=== PATIENT | female | born 1980 | race Caucasian/White ===

== ENCOUNTER 2022-03-02 07:03 | Inpatient (IN) | payer BC ==
[~2022-03-02] VITALS: Ht 175.3 cm; Wt 132.4 kg
[~2022-03-02 07:03] MED LIST: COLACE 100MG C100 MG PO; FERROUS SULFAT325 MG PO; IBUPROFEN600 MG PO; NORCO 10-325 T1 EACH PO; PRENATABS FA T1 EACH PO; VITAMIN D250 MCG PO
[2022-03-02 08:08] LABS: HEMOGLOBIN 10.8 gm/dl (12.3-15.3)
[2022-03-02 08:40] LABS: BUN/CREATININE RATIO 14 (0-10)
[2022-03-02] MEDS ORDERED: IBUPROFEN600 MG PO (09:04)
[2022-03-02] MEDS ORDERED: DOCUSATE SODIU100 MG PO (09:04)
[2022-03-02] MEDS ORDERED: HYDROCODON-ACE1 EAC4 PO (09:04)
[2022-03-02] MEDS ORDERED: GLUCOPHAGE 500500 MG PO (09:08)
[2022-03-02] MEDS ORDERED: CYMBALTA20 MG PO (09:09)
[2022-03-02] MEDS ORDERED: ABILIFY10 MG PO (09:09)
[2022-03-03 06:25] LABS: HEMOGLOBIN 10.3 gm/dl (12.3-15.3)
== END 2022-03-03 16:04 | disposition home or self-care (01) | DRG 788 ==
LOC: OR 07:03 → GENOP 07:03 → EDSTATUS 07:30 → OB 08:42
PROVIDERS: ADMIT Obstetrics & Gynecology
PROC: 4A1HXCZ Monitoring of Products of Conception, Cardiac Rate, External Approach (ICD-10-PCS; 2022-03-02)
PROC: 3E0234Z Introduction of Serum, Toxoid and Vaccine into Muscle, Percutaneous Approach (ICD-10-PCS; 2022-03-02)
PROC: 10D00Z1 Extraction of Products of Conception, Low, Open Approach (ICD-10-PCS; principal; 2022-03-02 07:30)
DX: O34.211 Maternal care for low transverse scar from previous cesarean delivery (principal); Z3A.38 38 weeks gestation of pregnancy; Z37.0 Single live birth; Z20.822 Contact with and (suspected) exposure to COVID-19; Z96.698 Presence of other orthopedic joint implants; O62.2 Other uterine inertia; O24.425 Gestational diabetes mellitus in childbirth, controlled by oral hypoglycemic drugs; Z88.2 Allergy status to sulfonamides; Z91.030 Bee allergy status; Z83.3 Family history of diabetes mellitus; Z81.8 Family history of other mental and behavioral disorders; Z82.49 Family history of ischemic heart disease and other diseases of the circulatory system; Z80.3 Family history of malignant neoplasm of breast; Z80.8 Family history of malignant neoplasm of other organs or systems; Z83.49 Family history of other endocrine, nutritional and metabolic diseases; Z91.013 Allergy to seafood; Z23 Encounter for immunization
CPT/HCPCS: 36415; 80053; 81001; 82800; 85014; 85018; 85025; 90715; C9113; J0690; J1650; J2210; J2274; J2405; J2590; J3010; J7120